=== PATIENT | male | born 1975 | race African-American/Black ===

== ENCOUNTER 2016-08-12 19:04 | Emergency (ER) | payer MEDICAID ==
[~2016-08-12] VITALS: Ht 180.3 cm; Wt 60.0 kg
[2016-08-12] MEDS ORDERED: ONDANSETRON HCL 4MG/2ML VIAL IV ONE (19:30)
[2016-08-12 19:49] LABS: EOSINOPHILS % 1.6 % (0.0-5.0); HEMATOCRIT. 37.6 % (42.0-52.0); HEMOGLOBIN. 13.3 g/dL (14.0-18.0); LYMPHOCYTES % 29.9 % (20.0-50.0); MEAN CORPUSCULAR HEMOGLOBIN 37.7 pg (28.0-32.0); MEAN CORPUSCULAR VOLUME 106.3 fL (80.0-94.0); MEAN PLATELET VOLUME 8.5 fl (7.4-10.4); MONOCYTES % 8.8 % (2.0-8.0); NEUTROPHILS % 58.7 % (40.0-76.0); PLATELET 76 x1000/uL (130-400); RED BLOOD CELL COUNT 3.54 mill/uL (4.7-6.1); RED CELL DISTRIBUTION WIDTH 15.9 % (11.6-14.6)
[2016-08-12 19:59] LABS: CARBON DIOXIDE 27 mEq/L (21-32); CHLORIDE 94 mEq/L (98-107); ETHANOL BLOOD < 10 mg/dL
[2016-08-12 23:00] VITALS: BP 107/56
== END 2016-08-12 23:13 | disposition home or self-care (01) ==
LOC: ER 19:26
DX: R56.9 Unspecified convulsions (principal); F17.200 Nicotine dependence, unspecified, uncomplicated
CPT/HCPCS: 36415; 70450; 80053; 85025; 96374; 99285; G0482; J2405; Z7610

== ENCOUNTER 2020-06-10 17:31 | Inpatient (IN) | payer MEDICAID ==
[~2020-06-10] VITALS: Ht 177.8 cm; Wt 64.0 kg
[2020-06-10] MEDS ORDERED: SODIUM CHLORIDE 0.9% 1,000 ML IV ONE (18:00)
[2020-06-10 18:27] LABS: BASOPHILS % 0.5 % (0.0-2.0); EOSINOPHILS % 0.2 % (0.0-5.0); HEMATOCRIT. 36.9 % (42.0-52.0); HEMOGLOBIN. 12.6 g/dL (14.0-18.0); MEAN CORPUSCULAR HEMOGLOBIN 36.6 pg (28.0-32.0); MEAN CORPUSCULAR VOLUME 107.1 fL (80.0-94.0); MEAN PLATELET VOLUME 8.5 fl (7.4-10.4); MONOCYTES % 6.5 % (2.0-8.0); NEUTROPHILS % 70.8 % (40.0-76.0); PLATELET 112 x1000/uL (130-400); RED BLOOD CELL COUNT 3.44 mill/uL (4.7-6.1); RED CELL DISTRIBUTION WIDTH 20.3 % (11.6-14.6)
[2020-06-10 18:36] LABS: CHLORIDE 95 mEq/L (98-107)
[2020-06-10 18:42] LABS: ETHANOL BLOOD < 10 mg/dL
[2020-06-10] MEDS ORDERED: POTASSIUM CHLORIDE 20MEQ TABLET SR PO ONE (19:15)
[2020-06-10] MEDS ORDERED: KCL 10MEQ/50ML PREMIX 50 ML IV NR (19:30)
[2020-06-10] MEDS ORDERED: MAGNESIUM 1 G PREMIX 100 ML IV SCH (20:15)
[2020-06-10] MEDS ORDERED: ASPIRIN 325MG EC TABLET PO ONE (21:00)
[2020-06-10 22:47] LABS: *AMPHETAMINES SCREEN URINE NEGATIVE (NEGATIVE); *BARBITURATES SCREEN URINE NEGATIVE (NEGATIVE); *BENZODIAZEPINES SCREEN URINE NEGATIVE (NEGATIVE); *COCAINE SCREEN URINE NEGATIVE (NEGATIVE)
[2020-06-10 22:48] LABS: CANNABINOID URINE SCREEN NEGATIVE (NEGATIVE); METHADONE URINE SCREEN NEGATIVE (NEGATIVE); OPIATES URINE SCREEN NEGATIVE (NEGATIVE); PHENCYCLIDINE URINE SCREEN NEGATIVE (NEGATIVE)
[2020-06-11] VITALS (8 sets, daily range): BP systolic 103–134; BP diastolic 60–78
[2020-06-11] MEDS ORDERED: LORAZEPAM 2MG/ML CPJ IV PRN (02:30)
[2020-06-11] MEDS ORDERED: HYDROCODONE/ACETAMINOPHEN 10/325MG TABLET PO PRN (08:30)
[2020-06-11] MEDS: LEVETIRACETAM 500MG TABLET PO SCH ×2 (09:06→21:46)
[2020-06-11] MEDS: ENOXAPARIN 40MG/0.4ML SYR SUBCUT SCH (09:07)
[2020-06-11 10:04] LABS: EOSINOPHILS % 0.8 % (0.0-5.0); HEMATOCRIT. 36.6 % (42.0-52.0); HEMOGLOBIN. 12.6 g/dL (14.0-18.0); LYMPHOCYTES % 29.7 % (20.0-50.0); MEAN CORPUSCULAR HEMOGLOBIN 37.1 pg (28.0-32.0); MEAN CORPUSCULAR VOLUME 107.7 fL (80.0-94.0); MEAN PLATELET VOLUME 8.9 fl (7.4-10.4); MONOCYTES % 7.7 % (2.0-8.0); NEUTROPHILS % 60.8 % (40.0-76.0); PLATELET 97 x1000/uL (130-400); RED BLOOD CELL COUNT 3.39 mill/uL (4.7-6.1); RED CELL DISTRIBUTION WIDTH 20.5 % (11.6-14.6)
[2020-06-11 10:12] LABS: CHLORIDE 100 mEq/L (98-107)
[2020-06-11] MEDS ORDERED: POTASSIUM CHLORIDE 20MEQ TABLET SR PO NR (11:30)
[2020-06-12 00:10] VITALS: BP 109/68
[2020-06-12 04:00] VITALS: BP 115/72
[2020-06-12 08:15] VITALS: BP 109/64
[2020-06-12] MEDS: ENOXAPARIN 40MG/0.4ML SYR SUBCUT SCH (09:00)
[2020-06-12] MEDS: LEVETIRACETAM 500MG TABLET PO SCH (09:02)
[2020-06-12] MEDS ORDERED: KEPP500 MT (09:42)
[2020-06-12 12:02] VITALS: BP 115/69
[2020-06-12 12:39] VITALS: BP 115/69
== END 2020-06-12 14:55 | disposition home or self-care (01) | DRG 48 ==
LOC: ER 17:31 → 6WST 20:49 → ENRESERV 23:27 → UNDODISIN 06-12 14:55
PROVIDERS: ADMIT Internal Medicine; ATTEND Internal Medicine
DX: G90.8 Other disorders of autonomic nervous system (principal); D69.6 Thrombocytopenia, unspecified; E83.42 Hypomagnesemia; E87.1 Hypo-osmolality and hyponatremia; D64.9 Anemia, unspecified; S00.03XA Contusion of scalp, initial encounter; E87.6 Hypokalemia; G40.909 Epilepsy, unspecified, not intractable, without status epilepticus; F10.10 Alcohol abuse, uncomplicated; R74.01 Elevation of levels of liver transaminase levels; F17.210 Nicotine dependence, cigarettes, uncomplicated; Z71.41 Alcohol abuse counseling and surveillance of alcoholic; Z71.6 Tobacco abuse counseling; Z72.820 Sleep deprivation
CPT/HCPCS: 36415; 71045; 80053; 80305; 80320; 83735; 83880; 84145; 84443; 84484; 85025; 93005; 93306; 93880; 99285; J1650; J3475; J3480; J7030; G0480

== ENCOUNTER 2021-09-08 12:42 | Emergency (ER) | payer MEDICAID ==
[~2021-09-08] VITALS: Ht 175.3 cm; Wt 76.0 kg
[~2021-09-08 12:42] MED LIST: KEPP500 MT
[2021-09-08 12:50] VITALS: BP 131/82
[2021-09-08 14:42] LABS: BASOPHILS % 0.3 % (0.0-2.0); EOSINOPHILS % 0.4 % (0.0-5.0); HEMATOCRIT. 44.6 % (42.0-52.0); HEMOGLOBIN. 15.3 g/dL (14.0-18.0); LYMPHOCYTES % 22.4 % (20.0-50.0); MEAN CORPUSCULAR HEMOGLOBIN 37.2 pg (28.0-32.0); MEAN CORPUSCULAR VOLUME 108.6 fL (80.0-94.0); MEAN PLATELET VOLUME 7.7 fl (7.4-10.4); MONOCYTES % 11.2 % (2.0-8.0); NEUTROPHILS % 65.7 % (40.0-76.0); PLATELET 99 x1000/uL (130-400); RED BLOOD CELL COUNT 4.11 mill/uL (4.7-6.1); RED CELL DISTRIBUTION WIDTH 18.4 % (11.6-14.6)
[2021-09-08 14:44] LABS: CHLORIDE 94 mEq/L (98-107)
== END 2021-09-08 17:28 | disposition home or self-care (01) ==
LOC: ER 12:42
DX: R19.7 Diarrhea, unspecified (principal); R56.9 Unspecified convulsions; Z20.822 Contact with and (suspected) exposure to COVID-19
CPT/HCPCS: 36415; 80053; 85025; 87426; 99283; C9803